=== PATIENT | female | born 1940 | race Caucasian/White ===

== ENCOUNTER 2022-11-09 08:50 | Day surgery (SDC) | payer MEDICARE, BC ==
[2022-11-02 12:15] LABS: BASOPHILS % (AUTO) 0.6 % (0-1); EOSINOPHILS % (AUTO) 0.4 % (0-6); LYMPHOCYTES # (AUTO) 1.4 X10'3 (1.1-4.8); LYMPHOCYTES % (AUTO) 25.2 % (21-51); MEAN CORPUSCULAR HEMOGLOBIN 30.6 PG (27.0-31.0); MEAN CORPUSCULAR HGB CONC 31.2 g/dL (33.0-36.5); MEAN CORPUSCULAR VOLUME 98.1 FL (78-98); MEAN PLATELET VOLUME 6.8 FL (7.4-10.4); MONOCYTES # (AUTO) 0.5 X10'3 (0-0.9); MONOCYTES % (AUTO) 8.7 % (2-12); NEUTROPHILS # (AUTO) 3.5 X10'3 (1.8-7.7); NEUTROPHILS % (AUTO) 65.1 % (42-75); PRE OP HEMATOCRIT 25.1 % (35.0-45.0); PRE OP PLATELET COUNT 460 X10'3 (140-440); RED BLOOD COUNT 2.56 X10'6 (4.20-5.60); RED CELL DISTRIBUTION WIDTH 16.2 % (11.5-14.5)
[2022-11-02 12:17] LABS: PRE OP HEMOGLOBIN 7.8 g/dL (12.0-16.0)
[2022-11-02 12:21] LABS: ALBUMIN 2.6 G/DL (3.4-5.0); ALBUMIN/GLOBULIN RATIO 0.8 (1.1-1.5); ALKALINE PHOSPHATASE 109 IU/L (46-116); BLOOD UREA NITROGEN 23 MG/DL (7-18); BUN/CREATININE RATIO 39.7 (10.0-20.0); CALCIUM 7.6 MG/DL (8.5-10.1); CHLORIDE 107 MMOL/L (99-107); CREATININE 0.58 MG/DL (0.40-0.90); PRE OP ALT 26 U/L (30-65); PRE OP ANION GAP 8 (8-16); PRE OP AST 24 U/L (10-37); PRE OP BILIRUB, TOTAL 0.2 MG/DL (0.0-1.0); PRE OP GLUCOSE 98 MG/DL (70-104); PRE OP POTASSIUM 3.6 MMOL/L (3.4-5.1); PRE OP SODIUM 141 MMOL/L (135-145); TOTAL CARBON DIOXIDE 26.3 MMOL/L (24-32); eGFR > 90 ML/MIN
[2022-11-09] VITALS (15 sets, daily range): BP systolic 109–132; BP diastolic 43–63
[~2022-11-09] VITALS: Ht 162.6 cm; Wt 45.0 kg
[~2022-11-09 08:50] MED LIST: AMIO200T61 PO; CALC0.2535 PO; CHOL20004 PO; MIDO10TA PO; OMEP40CA21 PO; PANT40TA54 PO; RIVA20TA PO; SOD250TA2 PO; SPIR25TA5 PO; TRAV2.5D6 RIGHTEYE; cefazolin 2gm/D5W 100mL 100 ML IV ONE; famotidine 20mg tablet PO ONE; ringers solution, lacted 1,000 ML IV SCH
[2022-11-09] MEDS ORDERED: BUPIVAcaine/PF 2.5 mg/ml (0.25%) 30ml vial ONE (10:21)
[2022-11-09] MEDS ORDERED: LIDOcaine 1% 30ml preserv. free vial ONE (10:21)
[2022-11-09] MEDS ORDERED: sevoflurane 250ml liquid IH ONE (10:32)
[2022-11-09] MEDS ORDERED: dexamethasone sod phosphate 4mg/ml inj. ONE (10:32)
[2022-11-09] MEDS ORDERED: ondansetron/PF 4mg/2ml inj ONE (10:32)
[2022-11-09] MEDS ORDERED: proCHLORperazine 10 MG/2 ml inj IV PRN (10:35)
[2022-11-09] MEDS ORDERED: hydrALAZINE 20mg/ml inj. IV PRN (10:35)
[2022-11-09] MEDS ORDERED: meperidine/PF 25mg/ml syringe IV PRN ×3 (10:35)
[2022-11-09] MEDS ORDERED: morphine 2 MG/ML inj. syringe IV PRN (10:35)
[2022-11-09] MEDS ORDERED: ringers solution, lacted 1,000 ML IV SCH (10:35)
[2022-11-09] MEDS ORDERED: ondansetron/PF 4mg/2ml inj IV PRN (10:35)
[2022-11-09] MEDS ORDERED: acetaminophen 1,000mg/100ml IV 100 ML IV PRN (10:35)
[2022-11-09] MEDS ORDERED: labetalol 20mg/4ml (5mg/ml) syringe IV PRN (10:35)
[2022-11-09] MEDS ORDERED: morphine 4 MG/ML inj SYRINge IV PRN (10:35)
[2022-11-09] MEDS ORDERED: midazolam 1 mg/ML 2ml injection ONE (10:37)
[2022-11-09] MEDS ORDERED: fentaNYL /PF 50mcg/ml 5ml ampule ONE (10:55)
[2022-11-09] MEDS ORDERED: propofol inj 20 ML IV ONE (10:58)
[2022-11-09] MEDS ORDERED: ePHEDrine 50MG/ML INJ. ONE (10:58)
[2022-11-09] MEDS ORDERED: 0.9 % SODIUM CHLORIDE 10 ML VIAL ONE (10:58)
[2022-11-09] MEDS ORDERED: rocuronium 10mg/ml inj IV ONE (10:58)
[2022-11-09] MEDS ORDERED: neostigmine methylsulfate 1 MG/ML 10ml vial ONE (10:58)
[2022-11-09] MEDS ORDERED: LIDOcaine 2% (20mg/ml) 5ml vial ONE (10:58)
[2022-11-09] MEDS ORDERED: LIDOcaine 1% 30ml preserv. free vial IJ ONE (11:19)
[2022-11-09] MEDS ORDERED: BUPIVAcaine/PF 2.5 mg/ml (0.25%) 30ml vial IJ ONE (11:19)
--- NOTE | 2022-11-09 12:04 | NUR ---
Received from OR via [facility] , accompanied by Anesthesiologist and report given by ASIA Anesthesiologist. PATIENT WAKING UP, NO S/S OF PAIN, V/S WNL, PIV 20G LEFT FOREARM, BANDAIDS LAPS SITES CLOSED C/D/I TO ABDOMEN. Addendum: 11/09/22 at 1225 by Arslan Mcduffie RN Amended: Links added. Addendum: 11/09/22 at 1228 by Arslan Mcduffie RN RIGHT CHEEK SKIN TEAR WITH TEGADERM NOTED. RIGHT EAR HEARING AIDS NOTED.
[2022-11-09] MEDS ORDERED: HYDROcodone/acetaminophen 5mg/325mg tablet PO PRN (12:05)
[2022-11-09] MEDS ORDERED: glycopyrrolate 0.2mg/ml inj IV ONE (13:10)
--- NOTE | 2022-11-09 14:34 | NUR ---
ALL DISCHARGE CRITERIA HAS BEEN MET. VSS, PAIN AT A TOLERABLE LEVEL, ABLE TO SAFELY AMBULATE AND TRANSFER SELF. IV TAKEN OUT WITHOUT ANY COMPLICATIONS. ALL DISCHARGE INSTRUCTIONS COVERED WITH PATIENT AND ALL QUESTIONS ANSWERED. PATIENT TAKEN OUT VIA WHEELCHAIR WITH ALL BELONGINGS TO PERSONAL VEHICLE WHERE FAMILY DROVE PATIENT HOME. Addendum: 11/09/22 at 1438 by Arslan Mcduffie RN Amended: Links added.
== END 2022-11-09 14:34 | disposition home or self-care (01) ==
LOC: PAS 08:50
PROVIDERS: ATTEND Surgery
DX: K40.20 Bilateral inguinal hernia, without obstruction or gangrene, not specified as recurrent (principal); M19.90 Unspecified osteoarthritis, unspecified site; K21.9 Gastro-esophageal reflux disease without esophagitis; Z79.899 Other long term (current) drug therapy; Z98.890 Other specified postprocedural states
CPT/HCPCS: 36415; 49650; 80053; 82948; 85025; C1781; J0690; J1100; J2250; J2405; J2704; J2710; J3010; J3490; J7030; J7120; Z7506; Z7508; Z7512; A4215; A4618

== ENCOUNTER 2022-11-29 12:37 | Inpatient (IN) | payer MEDICARE, BC ==
[~2022-11-29] VITALS: Ht 163.8 cm; Wt 45.0 kg
[~2022-11-29 12:37] MED LIST changes: -cefazolin 2gm/D5W 100mL 100 ML IV ONE; -famotidine 20mg tablet PO ONE; -ringers solution, lacted 1,000 ML IV SCH
[2022-11-29] MEDS ORDERED: normal saline 1000ml 1,000 ML IV ONE (13:05)
[2022-11-29 13:28] LABS: BASOPHILS % (AUTO) 0.6 % (0-1); EOSINOPHILS # (AUTO) 0.1 X10'3 (0-0.9); EOSINOPHILS % (AUTO) 1.4 % (0-6); HEMATOCRIT 22.6 % (35.0-45.0); LYMPHOCYTES # (AUTO) 1.2 X10'3 (1.1-4.8); LYMPHOCYTES % (AUTO) 30.9 % (21-51); MEAN CORPUSCULAR HEMOGLOBIN 27.1 PG (27.0-31.0); MEAN CORPUSCULAR HGB CONC 29.6 g/dL (33.0-36.5); MEAN CORPUSCULAR VOLUME 91.7 FL (78-98); MEAN PLATELET VOLUME 7.2 FL (7.4-10.4); MONOCYTES # (AUTO) 0.4 X10'3 (0-0.9); MONOCYTES % (AUTO) 11.1 % (2-12); NEUTROPHILS # (AUTO) 2.1 X10'3 (1.8-7.7); PLATELET COUNT 424 X10'3 (140-440); RED BLOOD COUNT 2.46 X10'6 (4.20-5.60); WHITE BLOOD COUNT 3.8 X10'3 (4.5-11.0)
[2022-11-29 13:32] LABS: HEMOGLOBIN 6.7 g/dl (12.0-16.0)
--- NOTE | 2022-11-29 13:32 | NUR ---
Critical lab Hgb: 6.7/ Hct 22.6 Addendum: 11/29/22 at 1411 by ATUL Critical lab Hgb: 6.7/ Hct 22.[address] Lugo @ [id number] and to this pt's RN, Xi. Dr. Lugo would like supplies for a guiac laid out.
[2022-11-29 13:42] LABS: ALANINE AMINOTRANSFERASE 32 U/L (12-78); ALBUMIN 2.4 G/DL (3.4-5.0); ALBUMIN/GLOBULIN RATIO 0.8 (1.1-1.5); ALKALINE PHOSPHATASE 102 IU/L (46-116); ANION GAP 7 (8-16); ASPARTATE AMINO TRANSFERASE 28 U/L (10-37); BILIRUBIN,TOTAL 0.2 MG/DL (0.1-1.0); BLOOD UREA NITROGEN 22 MG/DL (7-18); BUN/CREATININE RATIO 42.3 (10.0-20.0); CHLORIDE 108 MMOL/L (99-107); CREATININE 0.52 MG/DL (0.40-0.90); GLUCOSE 93 MG/DL (70-104); MAGNESIUM 1.7 MG/DL (1.5-2.4); POTASSIUM 3.9 MMOL/L (3.5-5.1); SODIUM 139 MMOL/L (135-145); TOTAL PROTEIN 5.6 G/DL (6.4-8.2); eGFR > 90 ML/MIN
[2022-11-29] MEDS ORDERED: AMIO200T27 PO (14:36)
[2022-11-29] MEDS ORDERED: CALC0.2535 PO (14:40)
[2022-11-29] MEDS ORDERED: SOD250TA2 PO (14:40)
[2022-11-29] MEDS ORDERED: MIDO5TAB4 PO (14:40)
[2022-11-29] MEDS ORDERED: RIVA20TA PO (14:40)
[2022-11-29] MEDS ORDERED: SPIR25TA5 PO (14:40)
[2022-11-29] MEDS ORDERED: OMEP40CA21 PO (14:40)
[2022-11-29] MEDS ORDERED: pantoprazole 40mg IV 80 MG in normal saline 100ml IV soln 100 ML IV ONE (15:25)
[2022-11-29] MEDS ORDERED: TRAV2.5D6 RIGHTEYE (15:47)
[2022-11-29] MEDS ORDERED: pantoprazole 40MG/NS 100ML BAG 100 ML IV ONE (16:00)
[2022-11-29 16:05] VITALS: BP 115/88
--- NOTE | 2022-11-29 17:07 | NUR ---
T/C to [facility] to let staff know there that she is in the ED. They stated they are the ones who sent her here and so are aware.
[2022-11-29] MEDS ORDERED: HYDROcodone/acetaminophen 5mg/325mg tablet PO PRN (17:10)
[2022-11-29] MEDS ORDERED: diphenhydrAMINE 25mg capsule PO PRN (17:10)
[2022-11-29] MEDS ORDERED: HYDROcodone/acetaminophen 10/325mg tab PO PRN (17:10)
[2022-11-29] MEDS ORDERED: bisacodyl 10mg suppository rectal RC PRN (17:10)
[2022-11-29] MEDS ORDERED: magnesium 4gm in 100ml NS 100 ML IV PRN (17:10)
[2022-11-29] MEDS ORDERED: acetaminophen 650mg rectal suppository RC PRN (17:10)
[2022-11-29] MEDS ORDERED: ondansetron/PF 4mg/2ml inj IV PRN (17:10)
[2022-11-29] MEDS ORDERED: magnesium 2GM in 50ml NS 50 ML IV PRN (17:10)
[2022-11-29] MEDS ORDERED: mag hydrox/Alum hydrox/simeth 30ml oral suspension PO PRN (17:10)
[2022-11-29] MEDS ORDERED: potassium Cl 40MEQ/1/2NS 520ml 520 ML IV PRN (17:10)
[2022-11-29] MEDS ORDERED: morphine 2 MG/ML inj. syringe IV PRN ×2 (17:10)
[2022-11-29] MEDS ORDERED: potassium Cl 20 mEq SR tablet PO PRN ×2 (17:10)
[2022-11-29] MEDS ORDERED: magnesium Cl slow-release 64mg tablet PO PRN (17:10)
[2022-11-29] MEDS ORDERED: magnesium hydroxide 30ml (MOM) UD suspension PO PRN (17:10)
[2022-11-29] MEDS ORDERED: acetaminophen 325mg tablet PO PRN ×2 (17:10)
[2022-11-29 17:52] LABS: HEMOGLOBIN A1C 4.5 % (4.5-6.2)
[2022-11-29 18:44] VITALS: BP 128/56
[2022-11-29] MEDS: normal saline 1000ml 1,000 ML IV SCH (18:51)
[2022-11-29 19:57] VITALS: BP 138/47
[2022-11-29] MEDS: docusate sod 100mg capsule PO SCH (20:00)
[2022-11-29] MEDS: K and/or MAG REPLACEMENT MC SCH (20:00)
[2022-11-29 20:12] VITALS: BP 123/48
[2022-11-29] MEDS: amiodarone 200mg tablet PO SCH (20:44)
[2022-11-29] MEDS ORDERED: diphenhydrAMINE 50 mg/ml inj IV ONE (21:40)
--- NOTE | 2022-11-29 22:00 | NUR ---
PT HAD POSSIBLE REACTION TO SECOND UNIT OF BLOOD. TRANSFUSION STOPPED. MD AWARE. PT HAD FLUSHING, DROP IN BP, AND TINGLING SENSATION TO HANDS. 25MG BENADRYL GIVEN
[2022-11-29] MEDS: midodrine 5mg tablet PO SCH (23:05)
[2022-11-29] MEDS: pantoprazole 40MG/NS 100ML BAG 100 ML IV SCH (23:06)
[2022-11-29 23:10] LABS: HEMATOCRIT 33.9 % (35.0-45.0); HEMOGLOBIN 10.6 g/dl (12.0-16.0); MEAN CORPUSCULAR HEMOGLOBIN 26.8 PG (27.0-31.0); MEAN CORPUSCULAR HGB CONC 31.3 g/dL (33.0-36.5); MEAN CORPUSCULAR VOLUME 85.6 FL (78-98); MEAN PLATELET VOLUME 7.3 FL (7.4-10.4); PLATELET COUNT 425 X10'3 (140-440); RED BLOOD COUNT 3.97 X10'6 (4.20-5.60); RED CELL DISTRIBUTION WIDTH 20.1 % (11.5-14.5); WHITE BLOOD COUNT 5.8 X10'3 (4.5-11.0)
[2022-11-29] MEDS: latanoprost 0.005% 2.5ml ophthalmic drops RIGHTEYE SCH (23:36)
[2022-11-29 23:49] LABS: CLARITY,URINE SLIGHTLY CLOUDY (Clear); COLOR,URINE YELLOW (Yellow); GLUCOSE, URINE NEGATIVE (Neg); KETONES,URINE NEGATIVE (Neg); LEUKOCYTE ESTERASE ,URINE NEGATIVE (Neg); NITRITES, URINE NEGATIVE (Neg); OCCULT BLOOD,URINE MODERATE (Neg); PROTEIN,URINE NEGATIVE (Neg); UROBILINOGEN,URINE 0.2 E.U/dL (0.2-1.0)
[2022-11-29 23:54] LABS: UA COLLECTION TYPE CLN CATCH MIDSTREAM
[2022-11-29 23:55] LABS: BACTERIA,URINE FEW /HPF (Neg); WBC,URINE 0-4 /HPF (0-4)
[2022-11-29 23:56] LABS: HYALINE CASTS 0-3 /LPF (NEGATIVE); SQUAMOUS EPITHELIAL CELL,UR MODERATE /LPF (FEW)
[2022-11-30] VITALS (8 sets, daily range): BP systolic 92–139; BP diastolic 43–95
[2022-11-30] MEDS: pantoprazole 40MG/NS 100ML BAG 100 ML IV SCH ×3 (02:00→13:38)
[2022-11-30] MEDS: normal saline 1000ml 1,000 ML IV SCH ×2 (03:06→17:03)
[2022-11-30 03:56] LABS: BASOPHILS % (AUTO) 0.2 % (0-1); EOSINOPHILS % (AUTO) 0.4 % (0-6); HEMATOCRIT 29.8 % (35.0-45.0); HEMOGLOBIN 9.3 g/dl (12.0-16.0); LYMPHOCYTES # (AUTO) 1.3 X10'3 (1.1-4.8); MEAN CORPUSCULAR HEMOGLOBIN 26.6 PG (27.0-31.0); MEAN CORPUSCULAR HGB CONC 31.2 g/dL (33.0-36.5); MEAN CORPUSCULAR VOLUME 85.3 FL (78-98); MEAN PLATELET VOLUME 7.4 FL (7.4-10.4); MONOCYTES # (AUTO) 0.4 X10'3 (0-0.9); MONOCYTES % (AUTO) 7.2 % (2-12); NEUTROPHILS # (AUTO) 3.5 X10'3 (1.8-7.7); NEUTROPHILS % (AUTO) 67.2 % (42-75); PLATELET COUNT 377 X10'3 (140-440); RED BLOOD COUNT 3.49 X10'6 (4.20-5.60); RED CELL DISTRIBUTION WIDTH 20.7 % (11.5-14.5); WHITE BLOOD COUNT 5.2 X10'3 (4.5-11.0)
[2022-11-30 04:03] LABS: ALANINE AMINOTRANSFERASE 21 U/L (12-78); ALBUMIN 1.9 G/DL (3.4-5.0); ALBUMIN/GLOBULIN RATIO 0.8 (1.1-1.5); ALKALINE PHOSPHATASE 82 IU/L (46-116); ANION GAP 6 (8-16); ASPARTATE AMINO TRANSFERASE 23 U/L (10-37); BILIRUBIN,TOTAL 0.7 MG/DL (0.1-1.0); BLOOD UREA NITROGEN 19 MG/DL (7-18); BUN/CREATININE RATIO 33.9 (10.0-20.0); CALCIUM 7.4 MG/DL (8.5-10.1); CHLORIDE 111 MMOL/L (99-107); CHOL/HDL RATIO 2.7 (0.00-4.99); CHOLESTEROL 96 MG/DL (0-200); CREATININE 0.56 MG/DL (0.40-0.90); GLUCOSE 87 MG/DL (70-104); HDL CHOLESTEROL 35 MG/DL (35-60); LDL CHOLESTEROL 51 MG/DL (50-100); MAGNESIUM 1.5 MG/DL (1.5-2.4); PHOSPHORUS 3.5 MG/DL (2.3-4.5); POTASSIUM 3.9 MMOL/L (3.5-5.1); SODIUM 142 MMOL/L (135-145); TOTAL CARBON DIOXIDE 24.6 MMOL/L (24-32); TOTAL PROTEIN 4.4 G/DL (6.4-8.2); TRIGLYCERIDES 50 MG/DL (20-135); eGFR > 90 ML/MIN
[2022-11-30 06:07] LABS: ANISOCYTOSIS 3+; BURR CELLS FEW; PLATELET ESTIMATE NORMAL
[2022-11-30 06:08] LABS: MICROCYTOSIS 1+
[2022-11-30] MEDS: K and/or MAG REPLACEMENT MC SCH ×2 (07:10→20:00)
[2022-11-30] MEDS ORDERED: LIDOcaine Viscous 15ml cup ONE (07:27)
[2022-11-30] MEDS ORDERED: MIDAZolam 1 MG/ML 5ML VIAL ONE (07:27)
[2022-11-30] MEDS ORDERED: fentaNYL/PF 50MCG/1 ML 2ML syringe ONE (07:27)
[2022-11-30] MEDS: amiodarone 200mg tablet PO SCH (08:00)
[2022-11-30] MEDS: docusate sod 100mg capsule PO SCH ×2 (08:00→20:00)
[2022-11-30] MEDS ORDERED: PEG 3350/Na sulf,bicarb,Cl/KCl oral sol 4 liter bottle PO ONE (08:35)
--- NOTE | 2022-11-30 08:59 | NUR ---
REPORT GIVEN TO TO LASHELL BRAND ANALYST WILL CALL GI [facility] TO TRANSPORT PT DIRECTLY FROM THERE
--- NOTE | 2022-11-30 09:14 | NUR ---
PCU NOT EXPECTING PT. PT BACK IN ED UNTIL THIS MATTER CAN BE CLARIFIED.
--- NOTE | 2022-11-30 09:30 | NUR ---
E: ED BED 4--PT HR 48 OK TO HOLD AMIODARONE? [id number]
--- NOTE | 2022-11-30 09:32 | NUR ---
PER DR YARA CHINCHILLA TO HOLD AMIODARONE, GIVE MIDODRINE AND SPIRONOLACTONE
[2022-11-30] MEDS: midodrine 5mg tablet PO SCH ×3 (09:46→20:45)
[2022-11-30] MEDS: spironolactone 25 MG tablet PO SCH (09:46)
--- NOTE | 2022-11-30 10:47 | NUR ---
PER DR LIVINGSTON START GOLYTELY TONIGHT AT 6PM NPO AT MIDNIGHT HALF PREP TONIGHT HALF IN AM WILL CALL GI TO CLARIFY PREP ORDERS
--- NOTE | 2022-11-30 10:59 | NUR ---
SPOKE WITH GI LAB, THEY WOULD LIKE US TO START GOLYTELY SOON POSSIBLE, HALF TONIGHT HALF TOMORROW. OK FOR PT TO CONTINUE CLEAR LIQUID DIET AT THIS TIME NPO AT 0000
--- NOTE | 2022-11-30 11:23 | NUR ---
PER LAB, PT HAD TRANSFUSION REACTION LAST NIGHT, SHE WILL NEED A NEW TYPE AND SCREEN DRAWN BEFORE ANY MORE BLOOD CAN BE GIVEN NOTIFIED DR LIVINGSTON
--- NOTE | 2022-11-30 11:27 | NUR ---
PT READY TO GO TO ORTHO 4022. LASHELL MARKHAM HAS ALREADY BEEN GIVEN REPORT, SEE EARLIER NOTES. PER CHARGE NURSE IT IS OKAY TO SEND PT UP.
[2022-11-30] MEDS ORDERED: ondansetron 4mg rapidly disintigrating tab PO PRN (14:20)
--- NOTE | 2022-11-30 18:00 | NUR ---
Patient up indep to [facility], . tolerating golytely, is for colonoscopy tomorrow. No c/o pain, or BM .
--- NOTE | 2022-11-30 18:43 | NUR ---
Problems reprioritized. Patient report given, questions answered & plan of care reviewed with Elif MARKHAM.
[2022-11-30] MEDS: latanoprost 0.005% 2.5ml ophthalmic drops RIGHTEYE SCH (21:00)
[2022-12-01] VITALS (9 sets, daily range): BP systolic 97–150; BP diastolic 38–95
[2022-12-01] MEDS: normal saline 1000ml 1,000 ML IV SCH ×3 (02:23→19:10)
[2022-12-01 07:17] LABS: HEMATOCRIT 30.6 % (35.0-45.0); HEMOGLOBIN 9.5 g/dl (12.0-16.0); MEAN CORPUSCULAR HEMOGLOBIN 26.4 PG (27.0-31.0); MEAN CORPUSCULAR HGB CONC 31.1 g/dL (33.0-36.5); MEAN CORPUSCULAR VOLUME 84.7 FL (78-98); MEAN PLATELET VOLUME 7.5 FL (7.4-10.4); PLATELET COUNT 380 X10'3 (140-440); RED BLOOD COUNT 3.61 X10'6 (4.20-5.60); RED CELL DISTRIBUTION WIDTH 20.9 % (11.5-14.5); WHITE BLOOD COUNT 5.8 X10'3 (4.5-11.0)
[2022-12-01 07:22] LABS: ALANINE AMINOTRANSFERASE 26 U/L (12-78); ALBUMIN 2.3 G/DL (3.4-5.0); ALBUMIN/GLOBULIN RATIO 0.8 (1.1-1.5); ALKALINE PHOSPHATASE 101 IU/L (46-116); ANION GAP 9 (8-16); ASPARTATE AMINO TRANSFERASE 22 U/L (10-37); BILIRUBIN,TOTAL 0.5 MG/DL (0.1-1.0); BLOOD UREA NITROGEN 7 MG/DL (7-18); BUN/CREATININE RATIO 15.2 (10.0-20.0); CALCIUM 7.6 MG/DL (8.5-10.1); CHLORIDE 109 MMOL/L (99-107); CREATININE 0.46 MG/DL (0.40-0.90); GLUCOSE 88 MG/DL (70-104); MAGNESIUM 1.6 MG/DL (1.5-2.4); PHOSPHORUS 2.3 MG/DL (2.3-4.5); POTASSIUM 3.5 MMOL/L (3.5-5.1); SODIUM 142 MMOL/L (135-145); TOTAL CARBON DIOXIDE 24.1 MMOL/L (24-32); TOTAL PROTEIN 5.2 G/DL (6.4-8.2); eGFR > 90 ML/MIN
[2022-12-01 07:41] LABS: ACANTHOCYTES FEW; ANISOCYTOSIS 3+; MICROCYTOSIS 1+; PLATELET ESTIMATE NORMAL; POLYCHROMASIA FEW; SCHISTOCYTES FEW; TOTAL CELLS COUNTED 100
[2022-12-01] MEDS ORDERED: calcitriol 0.25mcg capsule PO SCH (08:00)
[2022-12-01] MEDS: K and/or MAG REPLACEMENT MC SCH ×2 (08:00→20:00)
[2022-12-01] MEDS: pantoprazole 40mg Tablet.DR PO SCH (08:17)
[2022-12-01] MEDS: spironolactone 25 MG tablet PO SCH (08:17)
[2022-12-01] MEDS: docusate sod 100mg capsule PO SCH ×2 (08:17→20:00)
[2022-12-01] MEDS: midodrine 5mg tablet PO SCH ×3 (08:17→20:27)
--- NOTE | 2022-12-01 14:16 | NUR ---
Noted pt with a low BMI of 16.8 using scaled wt of 45 kg. Pt seen at bedside, unable to get a wt hx as pt proceeds to change the subject. Pt does state she is a big eater and usually eats larger meals with breakfast usually consisting of juice, hot tea, milk, pancakes, two eggs, and one hudson or sausage. Pt appears thin though possibly baseline appearance with age. Last scaled wt in EMR is 45 kg 11/09/22 which is stable with current scaled wt. No documented edema. Pt currently lacks a minimum of two criteria for malnutrition. Pt denies food allergies though states she is lactose intolerant, d/w dietary. Pt with no food preferences at this time stating she pretty much likes all food. Pt denies any difficulty chewing or swallowing. Will continue to follow and further monitor qualifying malnutrition criteria. Addendum: 12/01/22 at [address] Amended: Links added.
[2022-12-01] MEDS ORDERED: fentaNYL/PF 50MCG/1 ML 2ML syringe ONE (14:32)
[2022-12-01] MEDS ORDERED: MIDAZolam 1 MG/ML 5ML VIAL ONE (14:32)
--- NOTE | 2022-12-01 18:15 | NUR ---
Patient in room [facility]TH[facility] 4022. I have received report from Iveth MARKHAM and had the opportunity to ask questions and assume patient care.
--- NOTE | 2022-12-01 19:00 | NUR ---
no note from that saw pt on 12/01/22 will notify day shift about issue in am 12/02/22 Addendum: 12/02/22 at 0234 by Dorita Ortiz RN Amended: Links added.
[2022-12-01] MEDS: latanoprost 0.005% 2.5ml ophthalmic drops RIGHTEYE SCH (20:40)
[2022-12-02 02:00] VITALS: BP 104/46
[2022-12-02] MEDS: normal saline 1000ml 1,000 ML IV SCH (05:10)
[2022-12-02 06:00] VITALS: BP 115/55
[2022-12-02 06:18] LABS: EOSINOPHILS # (AUTO) 0.1 X10'3 (0-0.9); MONOCYTES # (AUTO) 0.3 X10'3 (0-0.9)
[2022-12-02 06:21] LABS: BASOPHILS % (AUTO) 0.4 % (0-1); EOSINOPHILS % (AUTO) 1.7 % (0-6); HEMATOCRIT 27.6 % (35.0-45.0); MEAN CORPUSCULAR HEMOGLOBIN 27.4 PG (27.0-31.0); MEAN CORPUSCULAR HGB CONC 32.5 g/dL (33.0-36.5); MEAN CORPUSCULAR VOLUME 84.3 FL (78-98); MEAN PLATELET VOLUME 7.2 FL (7.4-10.4); MONOCYTES % (AUTO) 9.7 % (2-12); NEUTROPHILS # (AUTO) 2.1 X10'3 (1.8-7.7); NEUTROPHILS % (AUTO) 59.2 % (42-75); PLATELET COUNT 352 X10'3 (140-440); RED BLOOD COUNT 3.28 X10'6 (4.20-5.60); RED CELL DISTRIBUTION WIDTH 20.1 % (11.5-14.5); WHITE BLOOD COUNT 3.6 X10'3 (4.5-11.0)
--- NOTE | 2022-12-02 06:32 | NUR ---
Patient in room [facility]TH[facility] 4022. I have received report from Dorita and had the opportunity to ask questions and assume patient care.
--- NOTE | 2022-12-02 06:34 | NUR ---
Problems reprioritized. Patient report given, questions answered & plan of care reviewed with Zhanna MARKHAM.
[2022-12-02 06:39] LABS: ALANINE AMINOTRANSFERASE 25 U/L (12-78); ALBUMIN 2.1 G/DL (3.4-5.0); ALBUMIN/GLOBULIN RATIO 0.8 (1.1-1.5); ALKALINE PHOSPHATASE 96 IU/L (46-116); ANION GAP 6 (8-16); ASPARTATE AMINO TRANSFERASE 27 U/L (10-37); BILIRUBIN,TOTAL 0.5 MG/DL (0.1-1.0); BLOOD UREA NITROGEN 12 MG/DL (7-18); CALCIUM 7.9 MG/DL (8.5-10.1); CHLORIDE 109 MMOL/L (99-107); CREATININE 0.63 MG/DL (0.40-0.90); GLUCOSE 82 MG/DL (70-104); MAGNESIUM 1.6 MG/DL (1.5-2.4); POTASSIUM 3.7 MMOL/L (3.5-5.1); SODIUM 142 MMOL/L (135-145); TOTAL CARBON DIOXIDE 27.1 MMOL/L (24-32); TOTAL PROTEIN 4.9 G/DL (6.4-8.2); eGFR 90 ML/MIN
[2022-12-02 06:41] LABS: PHOSPHORUS 3.4 MG/DL (2.3-4.5)
--- NOTE | 2022-12-02 07:49 | NUR ---
Re: Stevan in 76[facility], pt asking for "real food", only on clear liquids, please advise Zhanna
[2022-12-02] MEDS: docusate sod 100mg capsule PO SCH (08:00)
[2022-12-02] MEDS: K and/or MAG REPLACEMENT MC SCH (08:00)
[2022-12-02 08:27] LABS: ANISOCYTOSIS 3+; MICROCYTOSIS 1+; PLATELET ESTIMATE NORMAL; POIKILOCYTOSIS FEW
[2022-12-02] MEDS: spironolactone 25 MG tablet PO SCH (08:41)
[2022-12-02] MEDS: pantoprazole 40mg Tablet.DR PO SCH (08:41)
[2022-12-02] MEDS: midodrine 5mg tablet PO SCH ×2 (08:42→13:00)
[2022-12-02 10:32] VITALS: BP 122/50
[2022-12-02] MEDS ORDERED: FERR325T28 PO (10:33)
[2022-12-02] MEDS ORDERED: ASCO-10 PO (10:33)
[2022-12-02] MEDS ORDERED: DOCU100C40 PO (10:33)
[2022-12-02] MEDS ORDERED: PANT40TA54 PO (10:33)
--- NOTE | 2022-12-02 13:50 | NUR ---
Reviewed discharge instructions with patient. Patient verbalized understanding. Patient is alert, oriented and expresses a readiness to discharge home to [facility]. Patient dressed herself, gathered her belongings and was wheeled downstairs to be driven home in a cab.
[2022-12-15 06:41] LABS: OCCULT BLOOD STOOL POSITIVE (Neg)
== END 2022-12-02 14:03 | disposition home or self-care (01) | DRG 379 ==
LOC: ER 12:38 → ED HOLD 17:18 → ORTHO 4S 11-30 11:40
PROVIDERS: ADMIT Family Medicine; ATTEND Family Medicine
PROC: 30233N1 Transfusion of Nonautologous Red Blood Cells into Peripheral Vein, Percutaneous Approach (ICD-10-PCS; 2022-11-29)
PROC: 0DB98ZX Excision of Duodenum, Via Natural or Artificial Opening Endoscopic, Diagnostic (ICD-10-PCS; principal; 2022-11-30)
PROC: 0DB78ZX Excision of Stomach, Pylorus, Via Natural or Artificial Opening Endoscopic, Diagnostic (ICD-10-PCS; 2022-11-30)
PROC: 0DJD8ZZ Inspection of Lower Intestinal Tract, Via Natural or Artificial Opening Endoscopic (ICD-10-PCS; 2022-12-01)
DX: K29.71 Gastritis, unspecified, with bleeding (principal); I48.91 Unspecified atrial fibrillation; R00.1 Bradycardia, unspecified; D50.0 Iron deficiency anemia secondary to blood loss (chronic); K21.9 Gastro-esophageal reflux disease without esophagitis; Z79.899 Other long term (current) drug therapy; T45.8X5A Adverse effect of other primarily systemic and hematological agents, initial encounter; K57.91 Diverticulosis of intestine, part unspecified, without perforation or abscess with bleeding; Y84.8 Other medical procedures as the cause of abnormal reaction of the patient, or of later complication, without mention of misadventure at the time of the procedure; Y92.230 Patient room in hospital as the place of occurrence of the external cause; Z79.01 Long term (current) use of anticoagulants; Z86.711 Personal history of pulmonary embolism
CPT/HCPCS: 36415; 36430; 43239; 45378; 80053; 80061; 81001; 82272; 83036; 83735; 84100; 85007; 85008; 85025; 85027; 86078; 86885; 86900; 86901; 86920; 87081; 88305; 93005; 97116; 97161; 97530; 99152; 99285; A4620; A6212; A6258; C9113; G0378; J1200; J2250; J3010; J3490; J7030; P9016

== ENCOUNTER 2023-02-06 13:07 | Day surgery (SDC) | payer MEDICARE, BC ==
[~2023-02-06] VITALS: Ht 162.6 cm; Wt 93.5 kg
[2023-02-06] VITALS (14 sets, daily range): BP systolic 110–131; BP diastolic 50–80
[~2023-02-06 13:07] MED LIST changes: -AMIO200T61 PO; +ASCO-10 PO; -CHOL20004 PO; +DOCU100C40 PO; +FERR325T28 PO; -MIDO10TA PO; +MIDO5TAB4 PO; -OMEP40CA21 PO
[2023-02-06] MEDS ORDERED: MIDAZolam 1mg/ml 10ml vial IV ONE (13:35)
[2023-02-06] MEDS ORDERED: normal saline 1000ml 1,000 ML IV SCH (13:35)
[2023-02-06] MEDS ORDERED: fentaNYL/PF 50MCG/1 ML 2ML syringe IV ONE (13:35)
[2023-02-06] MEDS ORDERED: ASCO500T19 PO (15:43)
[2023-02-06] MEDS ORDERED: CHOL20003 PO (15:43)
[2023-02-06] MEDS ORDERED: FERR325T28 PO (15:43)
[2023-02-06] MEDS ORDERED: MIDO10TA PO (15:43)
[2023-02-06] MEDS ORDERED: OMEP40CA21 PO (15:43)
== END 2023-02-06 16:10 | disposition home or self-care (01) ==
LOC: SSTAY O 13:07
PROVIDERS: ATTEND Student in an Organized Health Care Education/Training Program
DX: I48.91 Unspecified atrial fibrillation (principal); Z86.718 Personal history of other venous thrombosis and embolism; Z79.899 Other long term (current) drug therapy
CPT/HCPCS: 93312; 93325; J2250; J7030; A4620

== ENCOUNTER 2023-02-22 09:43 | Inpatient (IN) | payer MEDICARE, BC ==
[2023-02-15 16:01] LABS: CLARITY,URINE CLOUDY (Clear); COLOR,URINE YELLOW (Yellow); GLUCOSE, URINE NEGATIVE (Neg); KETONES,URINE NEGATIVE (Neg); LEUKOCYTE ESTERASE ,URINE SMALL (Neg); NITRITES, URINE POSITIVE (Neg); OCCULT BLOOD,URINE MODERATE (Neg); PROTEIN,URINE NEGATIVE (Neg); UROBILINOGEN,URINE 0.2 E.U/dL (0.2-1.0)
[2023-02-15 16:02] LABS: UA COLLECTION TYPE NON-SPECIFIED
[2023-02-15 16:10] LABS: BACTERIA,URINE 3+ /HPF (Neg); MUCUS STRANDS FEW /LPF (Neg); SQUAMOUS EPITHELIAL CELL,UR FEW /LPF (FEW); TRANSITIONAL EPI CELLS,URINE MODERATE /HPF; WBC CLUMPS,URINE MANY /HPF (NEGATIVE)
[2023-02-15 16:11] LABS: RBC,URINE 0-2 /HPF (0-2); WBC,URINE 20-30 /HPF (0-4)
[2023-02-15 16:21] LABS: BASOPHILS % (AUTO) 0.5 % (0-1); EOSINOPHILS % (AUTO) 0.8 % (0-6); LYMPHOCYTES # (AUTO) 1.5 X10'3 (1.1-4.8); LYMPHOCYTES % (AUTO) 33.2 % (21-51); MEAN CORPUSCULAR HEMOGLOBIN 31.5 PG (27.0-31.0); MEAN CORPUSCULAR HGB CONC 31.3 g/dL (33.0-36.5); MEAN CORPUSCULAR VOLUME 100.7 FL (78-98); MEAN PLATELET VOLUME 6.7 FL (7.4-10.4); MONOCYTES # (AUTO) 0.5 X10'3 (0-0.9); MONOCYTES % (AUTO) 10.8 % (2-12); NEUTROPHILS # (AUTO) 2.5 X10'3 (1.8-7.7); NEUTROPHILS % (AUTO) 54.7 % (42-75); PRE OP HEMATOCRIT 26.7 % (35.0-45.0); PRE OP PLATELET COUNT 417 X10'3 (140-440); RED BLOOD COUNT 2.66 X10'6 (4.20-5.60)
[2023-02-15 16:25] LABS: PRE OP HEMOGLOBIN 8.4 g/dL (12.0-16.0)
[2023-02-15 16:31] LABS: PRE OP INR 1.1 INR; PRE OP PROTIME 11.9 SECONDS (9.0-12.0)
[2023-02-15 16:51] LABS: ALBUMIN 2.6 G/DL (3.4-5.0); ALBUMIN/GLOBULIN RATIO 0.9 (1.1-1.5); ALKALINE PHOSPHATASE 93 IU/L (46-116); BLOOD UREA NITROGEN 22 MG/DL (7-18); CALCIUM 8.4 MG/DL (8.5-10.1); CHLORIDE 105 MMOL/L (99-107); CREATININE 0.71 MG/DL (0.40-0.90); PRE OP ALT 31 U/L (30-65); PRE OP ANION GAP 12 (8-16); PRE OP AST 26 U/L (10-37); PRE OP BILIRUB, TOTAL 0.3 MG/DL (0.0-1.0); PRE OP GLUCOSE 91 MG/DL (70-104); PRE OP POTASSIUM 3.7 MMOL/L (3.4-5.1); PRE OP SODIUM 140 MMOL/L (135-145); TOTAL CARBON DIOXIDE 23.2 MMOL/L (24-32); TOTAL PROTEIN 5.6 G/DL (6.4-8.2); eGFR 78 ML/MIN
[2023-02-15 18:27] LABS: ANISOCYTOSIS 2+; MICROCYTOSIS 1+; PLATELET ESTIMATE NORMAL; POIKILOCYTOSIS FEW
[2023-02-15 18:28] LABS: HYPOCHROMASIA 1+; STOMATOCYTES 1+
[2023-02-15 18:29] LABS: ELLIPTOCYTES FEW; POLYCHROMASIA FEW
[~2023-02-22] VITALS: Ht 163.8 cm; Wt 47.0 kg
[2023-02-22] VITALS (13 sets, daily range): BP systolic 93–160; BP diastolic 44–80
[~2023-02-22 09:43] MED LIST changes: -ASCO-10 PO; +ASCO500T19 PO; +CHOL20003 PO; -DOCU100C40 PO; +MIDO10TA PO; -MIDO5TAB4 PO; +OMEP40CA21 PO; -PANT40TA54 PO; +cefazolin 2gm/D5W 100mL 100 ML IV ONE; +famotidine 20mg tablet PO ONE; +ondansetron/PF 4mg/2ml inj IV PRN; +protamine sulfate 10mg/ml inj. ONE; +ringers solution, lacted 1,000 ML IV SCH; +vancomycin/NS 1 GM in NS 250 ML IV ONE
[2023-02-22 10:46] LABS: BASOPHILS % (AUTO) 0.5 % (0-1); EOSINOPHILS % (AUTO) 0.4 % (0-6); LYMPHOCYTES % (AUTO) 24.5 % (21-51); MEAN CORPUSCULAR HEMOGLOBIN 32.3 PG (27.0-31.0); MEAN CORPUSCULAR VOLUME 104.1 FL (78-98); MONOCYTES # (AUTO) 0.4 X10'3 (0-0.9); MONOCYTES % (AUTO) 9.9 % (2-12); NEUTROPHILS # (AUTO) 2.7 X10'3 (1.8-7.7); NEUTROPHILS % (AUTO) 64.7 % (42-75); PRE OP HEMATOCRIT 23.5 % (35.0-45.0); PRE OP PLATELET COUNT 358 X10'3 (140-440); RED BLOOD COUNT 2.26 X10'6 (4.20-5.60); RED CELL DISTRIBUTION WIDTH 18.4 % (11.5-14.5)
[2023-02-22 10:49] LABS: PRE OP HEMOGLOBIN 7.3 g/dL (12.0-16.0)
[2023-02-22 10:55] LABS: PRE OP PROTIME 10.7 SECONDS (9.0-12.0)
[2023-02-22 10:58] LABS: ALBUMIN 2.2 G/DL (3.4-5.0); ALBUMIN/GLOBULIN RATIO 0.8 (1.1-1.5); ALKALINE PHOSPHATASE 75 IU/L (46-116); BLOOD UREA NITROGEN 22 MG/DL (7-18); BUN/CREATININE RATIO 38.6 (10.0-20.0); CALCIUM 7.6 MG/DL (8.5-10.1); CHLORIDE 106 MMOL/L (99-107); CREATININE 0.57 MG/DL (0.40-0.90); PRE OP ALT 34 U/L (30-65); PRE OP ANION GAP 10 (8-16); PRE OP AST 34 U/L (10-37); PRE OP BILIRUB, TOTAL 0.2 MG/DL (0.0-1.0); PRE OP GLUCOSE 89 MG/DL (70-104); PRE OP POTASSIUM 3.8 MMOL/L (3.4-5.1); PRE OP SODIUM 140 MMOL/L (135-145); TOTAL PROTEIN 4.9 G/DL (6.4-8.2); eGFR > 90 ML/MIN
[2023-02-22] MEDS ORDERED: iohexol 350MG/ML 100ml bottle IV ONE (11:07)
--- NOTE | 2023-02-22 11:09 | NUR ---
HGB 7.3 DR HARMON NOTIFIED, NO INTERVENTIONS NEEDED AT THIS TIME PER DR. HARMON
[2023-02-22] MEDS ORDERED: morphine 4 MG/ML inj SYRINge IV PRN (11:15)
[2023-02-22] MEDS ORDERED: morphine 2 MG/ML inj. syringe IV PRN (11:15)
[2023-02-22] MEDS ORDERED: ringers solution, lacted 1,000 ML IV SCH (11:15)
[2023-02-22] MEDS ORDERED: ondansetron/PF 4mg/2ml inj IV PRN ×2 (11:15→13:25)
[2023-02-22] MEDS ORDERED: labetalol 20mg/4ml (5mg/ml) syringe IV PRN ×2 (11:15→13:25)
[2023-02-22] MEDS ORDERED: neostigmine methylsulfate 1 MG/ML 10ml vial ONE (12:16)
[2023-02-22] MEDS ORDERED: glycopyrrolate 0.2mg/ml inj ONE (12:16)
[2023-02-22] MEDS ORDERED: desflurane 240ml liquid inh. IH ONE (12:16)
[2023-02-22] MEDS ORDERED: fentaNYL/PF 50MCG/1 ML 2ML syringe ONE (12:22)
[2023-02-22] MEDS ORDERED: midazolam 1 mg/ML 2ml injection ONE (12:23)
[2023-02-22] MEDS ORDERED: LIDOcaine 1%/PF 5ML 10 MG/ML VIAL ONE (12:31)
[2023-02-22] MEDS ORDERED: propofol inj 20 ML IV ONE (12:31)
[2023-02-22] MEDS ORDERED: rocuronium 10mg/ml inj IV ONE (12:31)
[2023-02-22] MEDS ORDERED: heparin 1,000unit/ml 10ml vial 10 ML ONE (12:32)
[2023-02-22] MEDS ORDERED: magnesium 4gm in 100ml NS 100 ML IV PRN (13:25)
[2023-02-22] MEDS ORDERED: pantoprazole 40mg Tablet.DR PO PRN (13:25)
[2023-02-22] MEDS ORDERED: magnesium 2GM in 50ml NS 50 ML IV PRN (13:25)
[2023-02-22] MEDS ORDERED: potassium CL 10mEq/100ml bag 100 ML IV PRN (13:25)
[2023-02-22] MEDS ORDERED: potassium Cl 40MEQ/1/2NS 520ml 520 ML IV PRN (13:25)
[2023-02-22] MEDS ORDERED: acetaminophen 325mg tablet PO PRN (13:25)
[2023-02-22] MEDS ORDERED: diphenhydrAMINE 25mg capsule PO PRN (13:25)
[2023-02-22] MEDS ORDERED: proCHLORperazine 10 MG/2 ml inj IV PRN (13:25)
[2023-02-22] MEDS ORDERED: potassium Cl 20 mEq SR tablet PO PRN (13:25)
[2023-02-22] MEDS ORDERED: docusate sod 100mg capsule PO PRN (13:25)
[2023-02-22] MEDS ORDERED: hydrALAZINE 20mg/ml inj. IV PRN (13:25)
[2023-02-22] MEDS: normal saline 1000ml 1,000 ML IV SCH (13:25)
[2023-02-22] MEDS ORDERED: ALPRAZolam 0.25mg tablet PO PRN (13:25)
[2023-02-22] MEDS ORDERED: potassium Cl 20mEq/100mL bag 100 ML IV PRN (13:25)
[2023-02-22] MEDS ORDERED: potassium Cl 40MEQ/270ML bag 250 ML IV PRN (13:25)
--- NOTE | 2023-02-22 13:30 | NUR ---
Received from OR via BED, accompanied by Anesthesiologist SHIRA and report given by Anesthesiolgist. PT ROUSES TO VERBAL STIMULI; SAO2 100 ON 10LPM O2 PER MASK. IV TO R AC - 20 GUAGE; ART LINE TO L WRIST - VALUE USED FOR INTIAL VS. FIGURE EIGHT SUTURE W/ STOPCOCK TO R GROIN CDI. DP PULSES PALPABLE; PT PULSE AUDIBLE W/ DOPPLER; THERE IS A SKIN TEAR AT THE CORNER OF R EYE DRAINING SEROUSANGUINOUS DRAINAGE. STERISTRIP APPLIED AND BLEEDING STOPPED. DENIES PAIN AT THIS TIME. WILL CONTINUE TO ASSESS AND TREAT NEEDED. Addendum: 02/22/23 at 1405 by Radha Cuevas RN Amended: Links added.
--- NOTE | 2023-02-22 15:20 | NUR ---
PT TRANSPORTED VIA BED; MONITORED DURING TRANSPORT. SHE IS AWAKE AND RESPONSIVE ALTHOUGH A LITTLE DROWSY. MONITOR SR W/ OCC. PVC. ART LINE DC'D AT 1420 W/OUT INCIDENT. FIGURE EIGHT SUTURE W/ STOPCOCK DC'D AT 1500 W/OUT INCIDENT. NO BLEEDING FROM ARTERIAL LINE SITE OR R GROIN. MAINTAINING SAO2 AT 98-100% ON RA. NO BLEEDING FROM R EYE SKIN TEAR SINCE STERISTRIPS APPLIED. REPORT TO SHAHRZAD Lunsford/ HANDOFF AT BEDSIDE. Addendum: 02/22/23 at 1537 by Radha Cuevas RN Amended: Links added.
[2023-02-22] MEDS: sod chloride 0.9% 10ml flush syringe IV SCH (16:07)
[2023-02-22] MEDS ORDERED: rivaroxaban 20mg tablet PO SCH (18:00)
--- NOTE | 2023-02-22 18:32 | NUR ---
Problems reprioritized. Patient report given, questions answered & plan of care reviewed with Addendum: 02/22/23 at 1833 by Minesh Mills RN Amended: Links added.
[2023-02-22] MEDS ORDERED: latanoprost 0.005% 2.5ml ophthalmic drops RIGHTEYE SCH (21:00)
[2023-02-22] MEDS: midodrine 5mg tablet PO SCH (23:38)
[2023-02-23] MEDS: sod chloride 0.9% 10ml flush syringe IV SCH ×2 (00:19→08:00)
[2023-02-23] MEDS: normal saline 1000ml 1,000 ML IV SCH ×2 (02:46→09:25)
[2023-02-23 06:00] VITALS: BP 116/47
[2023-02-23 06:20] LABS: BASOPHILS % (AUTO) 0.4 % (0-1); EOSINOPHILS % (AUTO) 0.3 % (0-6); HEMOGLOBIN 7.1 g/dl (12.0-16.0); LYMPHOCYTES # (AUTO) 1.6 X10'3 (1.1-4.8); LYMPHOCYTES % (AUTO) 36.7 % (21-51); MEAN CORPUSCULAR HEMOGLOBIN 31.8 PG (27.0-31.0); MEAN CORPUSCULAR HGB CONC 30.8 g/dL (33.0-36.5); MEAN CORPUSCULAR VOLUME 103.1 FL (78-98); MONOCYTES # (AUTO) 0.5 X10'3 (0-0.9); MONOCYTES % (AUTO) 12.4 % (2-12); NEUTROPHILS # (AUTO) 2.2 X10'3 (1.8-7.7); NEUTROPHILS % (AUTO) 50.2 % (42-75); PLATELET COUNT 318 X10'3 (140-440); RED BLOOD COUNT 2.24 X10'6 (4.20-5.60); RED CELL DISTRIBUTION WIDTH 18.6 % (11.5-14.5); WHITE BLOOD COUNT 4.3 X10'3 (4.5-11.0)
--- NOTE | 2023-02-23 06:20 | NUR ---
Patient in room PCU 3016. I have received report from Jacquelyn MARKHAM and had the opportunity to ask questions and assume patient care.Pt awake and alert. Right orbital area with steri strip and bruise. Pt states this happened when she was being intubated yesterday. snack given, call light in reach. Addendum: 02/23/23 at 0650 by Jerri Wong RN Amended: Links added.
[2023-02-23 06:48] LABS: ALANINE AMINOTRANSFERASE 27 U/L (12-78); ALBUMIN 1.9 G/DL (3.4-5.0); ALBUMIN/GLOBULIN RATIO 0.7 (1.1-1.5); ALKALINE PHOSPHATASE 73 IU/L (46-116); ANION GAP 8 (8-16); ANISOCYTOSIS 2+; ASPARTATE AMINO TRANSFERASE 34 U/L (10-37); BILIRUBIN,TOTAL 0.2 MG/DL (0.1-1.0); BLOOD UREA NITROGEN 12 MG/DL (7-18); BUN/CREATININE RATIO 21.1 (10.0-20.0); CALCIUM 7.4 MG/DL (8.5-10.1); CHLORIDE 106 MMOL/L (99-107); CREATININE 0.57 MG/DL (0.40-0.90); GLUCOSE 95 MG/DL (70-104); MAGNESIUM 1.6 MG/DL (1.5-2.4); PLATELET ESTIMATE NORMAL; POIKILOCYTOSIS FEW; POTASSIUM 3.8 MMOL/L (3.5-5.1); SODIUM 138 MMOL/L (135-145); STOMATOCYTES 1+; TOTAL CARBON DIOXIDE 24.3 MMOL/L (24-32); TOTAL PROTEIN 4.5 G/DL (6.4-8.2); eGFR > 90 ML/MIN
[2023-02-23] MEDS ORDERED: ascorbic acid 500mg tablet PO SCH (08:00)
[2023-02-23] MEDS ORDERED: cholecalciferol (vitamin D3) 1,000 unit (25mcg) tablet PO SCH (08:00)
[2023-02-23] MEDS ORDERED: spironolactone 25 MG tablet PO SCH (08:00)
[2023-02-23] MEDS ORDERED: calcitriol 0.25mcg capsule PO SCH (08:00)
[2023-02-23] MEDS ORDERED: TYPE IN GENERIC & BRAND NAME OF PATIENT MED STRENGTH & FORM PO SCH (08:00)
[2023-02-23] MEDS ORDERED: pantoprazole 40mg Tablet.DR PO SCH (08:00)
[2023-02-23] MEDS ORDERED: ferrous sulfate 325mg tablet PO SCH (08:00)
[2023-02-23] MEDS: midodrine 5mg tablet PO SCH (08:25)
[2023-02-23 11:00] VITALS: BP 110/41
--- NOTE | 2023-02-23 11:28 | NUR ---
Noted pt with a low BMI of 17.5 using scaled wt of 47 kg. Pt unsure of wt loss though denies decreased appetite/PO intake per malnutrition risk screen with RN. Noted pt with standing scaled wt h/o 45 kg 11/09/22 and 11/29/22. Pt currently +2 kg from previous scaled weights. Pt on a heart healthy diet, documented with 100% PO intake at breakfast this morning. Per RD note 12/01/22 at previous admit: "Pt seen at bedside, unable to get a wt hx as pt proceeds to change the subject. Pt does state she is a big eater and usually eats larger meals with breakfast usually consisting of juice, hot tea, milk, pancakes, two eggs, and one hudson or sausage. Pt appears thin though possibly baseline appearance with age...Pt denies food allergies though states she is lactose intolerant, d/w dietary. Pt with no food preferences at this time stating she pretty much likes all food. Pt denies any difficulty chewing or swallowing...". This admit pt with no documented decrease in muscle strength or edema. Pt currently lacks a minimum of two criteria for malnutrition. Will continue to follow and monitor s/s of malnutrition. Addendum: 02/23/23 at [address] Amended: Links added.
--- NOTE | 2023-02-23 14:35 | NUR ---
All written and verbal orders given to daughter and pt. All questions answered. Pt stated she had all belongings including hearing aides and cell phone. Addendum: 02/23/23 at 1448 by Jerri Wong RN Amended: Links added.
== END 2023-02-23 14:25 | disposition home or self-care (01) | DRG 274 ==
LOC: PAS 09:43 → PAS IN 13:27 → PCU 3S 15:20
PROVIDERS: ADMIT Student in an Organized Health Care Education/Training Program; ATTEND Student in an Organized Health Care Education/Training Program
PROC: B24BZZ4 Ultrasonography of Heart with Aorta, Transesophageal (ICD-10-PCS; 2023-02-22)
PROC: 02L73DK Occlusion of Left Atrial Appendage with Intraluminal Device, Percutaneous Approach (ICD-10-PCS; principal; 2023-02-22 12:16)
DX: I48.0 Paroxysmal atrial fibrillation (principal); Z00.6 Encounter for examination for normal comparison and control in clinical research program; I45.10 Unspecified right bundle-branch block; Z79.01 Long term (current) use of anticoagulants; Z79.899 Other long term (current) drug therapy; Z86.711 Personal history of pulmonary embolism
CPT/HCPCS: 33340; 36415; 71045; 71046; 76376; 76937; 80053; 81001; 83735; 83880; 85008; 85025; 85347; 85610; 85730; 86885; 86900; 86901; 86920; 87077; 87081; 87088; 87186; 93005; 93308; 93312; A4618; A6258; A6449; C1760; C1889; C1893; C1894; G0378; J0690; J1644; J2250; J2704; J2710; J2720; J3010; J3370; J3490; J7030; J7040; J7120; Q9967

== ENCOUNTER 2023-11-04 08:18 | Emergency (ER) | payer MEDICARE, BC ==
[~2023-11-04] VITALS: Ht 162.6 cm; Wt 50.0 kg
[~2023-11-04 08:18] MED LIST changes: +ACET-2119 PO; +ASPI81TA52 PO; -FERR325T28 PO; -OMEP40CA21 PO; -RIVA20TA PO; -SPIR25TA5 PO; -cefazolin 2gm/D5W 100mL 100 ML IV ONE; -famotidine 20mg tablet PO ONE; -ondansetron/PF 4mg/2ml inj IV PRN; -protamine sulfate 10mg/ml inj. ONE; -ringers solution, lacted 1,000 ML IV SCH; -vancomycin/NS 1 GM in NS 250 ML IV ONE
[2023-11-04 08:19] VITALS: TEMP 98
[2023-11-04 10:44] LABS: BILIRUBIN,URINE NEGATIVE (Neg); CLARITY,URINE CLEAR (Clear); COLOR,URINE YELLOW (Yellow); GLUCOSE, URINE NEGATIVE (Neg); KETONES,URINE NEGATIVE (Neg); LEUKOCYTE ESTERASE ,URINE NEGATIVE (Neg); NITRITES, URINE NEGATIVE (Neg); OCCULT BLOOD,URINE MODERATE (Neg); PROTEIN,URINE NEGATIVE (Neg); UROBILINOGEN,URINE 0.2 E.U/dL (0.2-1.0)
[2023-11-04 10:49] LABS: UA COLLECTION TYPE STRAIGHT CATH
[2023-11-04 10:49] LABS: BASOPHILS % (AUTO) 0.4 % (0-1); EOSINOPHILS % (AUTO) 0.5 % (0-6); HEMATOCRIT 28.4 % (35.0-45.0); HEMOGLOBIN 8.9 g/dl (12.0-16.0); LYMPHOCYTES # (AUTO) 1.1 X10'3 (1.1-4.8); MEAN CORPUSCULAR HEMOGLOBIN 25.9 PG (27.0-31.0); MEAN CORPUSCULAR HGB CONC 31.4 g/dL (33.0-36.5); MEAN CORPUSCULAR VOLUME 82.4 FL (78-98); MEAN PLATELET VOLUME 7.4 FL (7.4-10.4); MONOCYTES # (AUTO) 0.4 X10'3 (0-0.9); NEUTROPHILS # (AUTO) 3.3 X10'3 (1.8-7.7); NEUTROPHILS % (AUTO) 68.1 % (42-75); PLATELET COUNT 363 X10'3 (140-440); RED BLOOD COUNT 3.45 X10'6 (4.20-5.60); WHITE BLOOD COUNT 4.8 X10'3 (4.5-11.0)
[2023-11-04 10:54] LABS: URINE AMPHETAMINE SCREEN NEGATIVE (Neg); URINE BARBITUATE SCREEN NEGATIVE (Neg); URINE BENZODIAZEPINES SCREEN NEGATIVE (Neg); URINE CANNABINOID SCREEN NEGATIVE (Neg); URINE COCAINE SCREEN NEGATIVE (Neg); URINE METHADONE SCREEN NEGATIVE (Neg); URINE OPIATE SCREEN NEGATIVE (Neg); URINE PHENCYCLIDINE SCREEN NEGATIVE (Neg)
[2023-11-04 10:59] LABS: SQUAMOUS EPITHELIAL CELL,UR FEW /LPF (FEW)
[2023-11-04 11:00] LABS: ANION GAP 11 (8-16); BLOOD UREA NITROGEN 21 MG/DL (7-18); BUN/CREATININE RATIO 29.6 (10.0-20.0); CALCIUM 8.2 MG/DL (8.5-10.1); CHLORIDE 108 MMOL/L (99-107); CREATININE 0.71 MG/DL (0.40-0.90); ETHANOL < 10 MG/DL (<10); GLUCOSE 84 MG/DL (70-104); POTASSIUM 3.6 MMOL/L (3.5-5.1); SODIUM 143 MMOL/L (135-145); TOTAL CARBON DIOXIDE 23.8 MMOL/L (24-32); eCRCL 46 ML/MIN; eGFR 78 ML/MIN
[2023-11-04 11:04] LABS: BACTERIA,URINE FEW /HPF (Neg); WBC,URINE 0-4 /HPF (0-4)
[2023-11-04 11:56] LABS: ANISOCYTOSIS 2+; HYPOCHROMASIA 1+; PLATELET ESTIMATE NORMAL
[2023-11-04 11:57] LABS: ELLIPTOCYTES FEW; STOMATOCYTES FEW; TEAR DROP CELLS FEW
[2023-11-04 12:42] VITALS: O2SAT 95
[2023-11-04] MEDS: CefTRIAXone 2gm/D5W 50ml BAG 50 ML IV ONE (14:45)
[2023-11-04 17:52] VITALS: BP 126/57; PULSE 72; RESP 15
== END 2023-11-04 19:22 | disposition home or self-care (01) ==
LOC: ER 08:18
DX: R53.1 Weakness (principal); G89.29 Other chronic pain; M54.50 Low back pain, unspecified; Z79.899 Other long term (current) drug therapy; Z79.82 Long term (current) use of aspirin
CPT/HCPCS: 36415; 70450; 71045; 80048; 80305; 80320; 81001; 82140; 83605; 83735; 84145; 84484; 85008; 85025; 87040; 93005; 99285; A4353

== ENCOUNTER 2024-05-09 17:07 | Emergency (ER) | payer MEDICARE, BC ==
[~2024-05-09] VITALS: Ht 162.6 cm; Wt 43.6 kg
[~2024-05-09 17:07] MED LIST changes: -ACET-2119 PO; -ASPI81TA52 PO
[2024-05-09 19:16] LABS: BASOPHILS % (AUTO) 0.3 % (0-1); EOSINOPHILS % (AUTO) 0.8 % (0-6); HEMOGLOBIN 9.5 g/dl (12.0-16.0); LYMPHOCYTES # (AUTO) 1.2 X10'3 (1.1-4.8); LYMPHOCYTES % (AUTO) 20.8 % (21-51); MEAN CORPUSCULAR HEMOGLOBIN 31.1 PG (27.0-31.0); MEAN CORPUSCULAR HGB CONC 31.7 g/dL (33.0-36.5); MEAN PLATELET VOLUME 7.5 FL (7.4-10.4); MONOCYTES # (AUTO) 0.5 X10'3 (0-0.9); MONOCYTES % (AUTO) 8.9 % (2-12); NEUTROPHILS # (AUTO) 4.1 X10'3 (1.8-7.7); NEUTROPHILS % (AUTO) 69.2 % (42-75); PLATELET COUNT 331 X10'3 (140-440); RED BLOOD COUNT 3.06 X10'6 (4.20-5.60); RED CELL DISTRIBUTION WIDTH 15.7 % (11.5-14.5)
[2024-05-09 19:27] LABS: ALBUMIN 2.7 G/DL (3.4-5.0); ANION GAP 8 (8-16); BLOOD UREA NITROGEN 27 MG/DL (7-18); BUN/CREATININE RATIO 41.5 (10.0-20.0); CALCIUM 8.4 MG/DL (8.5-10.1); CHLORIDE 108 MMOL/L (99-107); CREATININE 0.65 MG/DL (0.40-0.90); GLUCOSE 87 MG/DL (70-104); POTASSIUM 4.3 MMOL/L (3.5-5.1); SODIUM 138 MMOL/L (135-145); TOTAL CARBON DIOXIDE 21.7 MMOL/L (24-32); eCRCL 44 ML/MIN; eGFR 87 ML/MIN
[2024-05-09 22:52] VITALS: BP 118/81; PULSE 65; RESP 18; TEMP 98.9; O2SAT 95
== END 2024-05-09 22:58 | disposition home or self-care (01) ==
LOC: ER 17:08
DX: R19.7 Diarrhea, unspecified (principal); I48.91 Unspecified atrial fibrillation; Z79.899 Other long term (current) drug therapy
CPT/HCPCS: 80048; 85025; 99284

== ENCOUNTER 2024-08-25 07:49 | Emergency (ER) | payer MEDICARE, BC ==
[~2024-08-25] VITALS: Ht 165.1 cm; Wt 52.3 kg
[~2024-08-25 07:49] MED LIST changes: -MIDO10TA PO; +MIDO10TA3 PO
[2024-08-25] MEDS ORDERED: DULO30CA52 PO (08:23)
[2024-08-25] MEDS ORDERED: GABA-530 (08:23)
[2024-08-25 08:31] LABS: BASOPHILS % (AUTO) 0.3 % (0-1); EOSINOPHILS % (AUTO) 0.1 % (0-6); HEMATOCRIT 36.8 % (35.0-45.0); HEMOGLOBIN 11.8 g/dl (12.0-16.0); LYMPHOCYTES # (AUTO) 0.9 X10'3 (1.1-4.8); MEAN CORPUSCULAR HEMOGLOBIN 30.2 PG (27.0-31.0); MEAN CORPUSCULAR VOLUME 94.4 FL (78-98); MEAN PLATELET VOLUME 7.5 FL (7.4-10.4); MONOCYTES # (AUTO) 0.4 X10'3 (0-0.9); NEUTROPHILS # (AUTO) 4.8 X10'3 (1.8-7.7); NEUTROPHILS % (AUTO) 78.6 % (42-75); PLATELET COUNT 395 X10'3 (140-440); RED BLOOD COUNT 3.91 X10'6 (4.20-5.60); RED CELL DISTRIBUTION WIDTH 15.8 % (11.5-14.5); WHITE BLOOD COUNT 6.1 X10'3 (4.5-11.0)
[2024-08-25 08:50] LABS: BILIRUBIN,URINE NEGATIVE (Neg); CLARITY,URINE CLEAR (Clear); COLOR,URINE YELLOW (Yellow); GLUCOSE, URINE NEGATIVE (Neg); KETONES,URINE NEGATIVE (Neg); LEUKOCYTE ESTERASE ,URINE NEGATIVE (Neg); NITRITES, URINE NEGATIVE (Neg); OCCULT BLOOD,URINE NEGATIVE (Neg); PROTEIN,URINE NEGATIVE (Neg); UROBILINOGEN,URINE 0.2 E.U/dL (0.2-1.0)
[2024-08-25 08:57] LABS: UA COLLECTION TYPE STRAIGHT CATH
[2024-08-25 09:13] LABS: ALANINE AMINOTRANSFERASE 26 U/L (12-78); ALBUMIN 3.1 G/DL (3.4-5.0); ALBUMIN/GLOBULIN RATIO 0.8 (1.1-1.5); ALKALINE PHOSPHATASE 141 IU/L (46-116); ANION GAP 12 (8-16); ASPARTATE AMINO TRANSFERASE 34 U/L (10-37); BILIRUBIN,TOTAL 0.9 MG/DL (0.1-1.0); BLOOD UREA NITROGEN 19 MG/DL (7-18); BUN/CREATININE RATIO 29.2 (10.0-20.0); CALCIUM 7.9 MG/DL (8.5-10.1); CHLORIDE 107 MMOL/L (99-107); CREATININE 0.65 MG/DL (0.40-0.90); GLUCOSE 99 MG/DL (70-104); POTASSIUM 3.3 MMOL/L (3.5-5.1); SODIUM 143 MMOL/L (135-145); eCRCL 51 ML/MIN; eGFR 86 ML/MIN
[2024-08-25 09:18] LABS: MAGNESIUM 1.3 MG/DL (1.5-2.4); THYROID STIMULATING HORMONE 2.27 ulU/ml (0.34-4.50)
[2024-08-25 14:22] VITALS: BP 120/81; PULSE 115; RESP 16; TEMP 100; O2SAT 97
== END 2024-08-25 14:25 | disposition home or self-care (01) ==
LOC: ER 07:50
DX: R41.82 Altered mental status, unspecified (principal); I48.91 Unspecified atrial fibrillation; Z79.899 Other long term (current) drug therapy; Z87.440 Personal history of urinary (tract) infections
CPT/HCPCS: 36415; 71045; 80053; 81003; 83605; 83735; 84145; 84443; 84484; 85025; 87040; 93005; 99285; A4353